=== PATIENT | female | born 1960 | race American Indian/Alaskan Native ===

== ENCOUNTER 2017-03-25 08:59 | Emergency (ER) | payer SELFPAY ==
--- NOTE | 2017-03-25 11:57 | Emergency Department Report ---
ED Fall HPI - General Chief Complaint: Fall Stated Complaint: FALL Time Seen by Provider: 03/25/17 11:30 Source: patient Mode of arrival: Ambulatory - History of Present Illness Initial Comments: 56-year-old -[place] female comes in status post slip and fell in the bathroom at [employer] last night approximately 11 PM. Patient states that she hit her left knee on the floor and hit the top of her head on the bathroom door. Patient uses is she feels like she pulled something in her middle of her back. She denies any swelling deformity. She is able to ambulate without difficulties. She denies any nausea no vomiting the last of consciousness no chest pain or change in vision. -: During the night Fall From: standing Fall Witnessed: no Place Fall Occurred: other ([place]) Loss of Consciousness: none Prolonged Down Time?: no Symptoms Prior to Fall: none Location: head, back, other (left knee) Location - Extremities: Left: Knee Severity scale (0 -10): 5 Quality: dull Context: tripped/slipped - Related Data Previous Rx's Medication Instructions Recorded Last Taken Type methOCARBAMOL [Robaxin] 500 mg PO BID #30 tab 01/27/14 Unknown Rx Acetaminophen/Codeine [Tylenol #3] 1 tab PO QHS PRN #10 tab 09/02/15 Unknown Rx Clindamycin [Clindamycin CAP] 600 mg PO BID #28 capsule 09/02/15 Unknown Rx Ibuprofen [Motrin] 800 mg PO Q8HR PRN #45 tablet 09/02/15 Unknown Rx Ibuprofen [Motrin 800 MG tab] 800 mg PO Q8H PRN #20 tablet 09/04/15 Unknown Rx traMADol [Ultram 50 MG tab] 50 mg PO Q6HR PRN #20 tablet 11/02/15 Unknown Rx Naproxen [Naprosyn TAB] 500 mg PO BID #30 tablet 03/25/17 Unknown Rx Allergies Allergy/AdvReac Type Severity Reaction Status Date / Time clindamycin Allergy Dizziness Verified 03/25/17 10:06 ED Review of Systems ROS: Stated complaint: FALL Other details as noted in HPI Constitutional: denies: chills, fever Eyes: denies: eye pain, eye discharge, vision change ENT: denies: ear pain, throat pain Respiratory: denies: cough, shortness of breath, wheezing Cardiovascular: denies: chest pain, palpitations Endocrine: no symptoms reported Gastrointestinal: denies: abdominal pain, nausea, diarrhea Genitourinary: denies: urgency, dysuria, discharge Musculoskeletal: denies: back pain, joint swelling, arthralgia Skin: denies: rash, lesions Neurological: denies: headache, weakness, paresthesias Psychiatric: denies: anxiety, depression Hematological/Lymphatic: denies: easy bleeding, easy bruising ED Past Medical Hx - Past Medical History Hx Hypertension: Yes Hx Diabetes: No - Surgical History Hx Breast Surgery: Yes (BILATERAL Breast biopsy) Additional Surgical History: L ankle, partial hysterectomy - Social History Smoking Status: Never Smoker Substance Use Type: None - Medications Home Medications: Home Medications Medication Instructions Recorded Confirmed Last Taken Type methOCARBAMOL [Robaxin] 500 mg PO BID #30 tab 01/27/14 Unknown Rx Acetaminophen/Codeine [Tylenol #3] 1 tab PO QHS PRN #10 tab 09/02/15 Unknown Rx Clindamycin [Clindamycin CAP] 600 mg PO BID #28 capsule 09/02/15 Unknown Rx Ibuprofen [Motrin] 800 mg PO Q8HR PRN #45 tablet 09/02/15 Unknown Rx Ibuprofen [Motrin 800 MG tab] 800 mg PO Q8H PRN #20 tablet 09/04/15 Unknown Rx traMADol [Ultram 50 MG tab] 50 mg PO Q6HR PRN #20 tablet 11/02/15 Unknown Rx Naproxen [Naprosyn TAB] 500 mg PO BID #30 tablet 03/25/17 Unknown Rx ED Physical Exam - General Limitations: No Limitations General appearance: alert - Head Head exam: Present: atraumatic - Eye Eye exam: Present: normal appearance - ENT ENT exam: Present: mucous membranes moist - Cardiovascular Cardiovascular Exam: Present: regular rate, normal rhythm, normal heart sounds - Extremities Exam Extremities exam: Present: normal inspection, full ROM. Absent: tenderness, pedal edema, joint swelling - Expanded Lower Extremity Exam Left Knee exam: Present: normal inspection, full ROM. Absent: tenderness, swelling, ecchymosis, deformity, crepidus, dislocation, erythema Neuro vascular tendon exam: Present: no vascular compromise Gait: Positive: observed and normal - Back Exam Back exam: Present: normal inspection, paraspinal tenderness (lumbar ) - Neurological Exam Neurological exam: Present: alert, oriented X3 - Psychiatric Psychiatric exam: Present: normal affect, normal mood - Skin Skin exam: Present: warm, dry, intact ED Course Vital Signs 03/25/17 09:59 Temperature 98.4 F Pulse Rate 87 Respiratory 17 Rate Blood Pressure 168/97 O2 Sat by Pulse 100 Oximetry Critical care attestation.: If time is entered above; I have spent that time in minutes in the direct care of this critically ill patient, excluding procedure time. ED Disposition Clinical Impression: Fall Qualifiers: Encounter type: initial encounter Qualified Code(s): W19.XXXA - Unspecified fall, initial encounter Back pain Qualifiers: Back pain location: thoracic back pain Chronicity: acute Back pain laterality: bilateral Qualified Code(s): M54.6 - Pain in thoracic spine Disposition: DISCHARGED TO HOME OR SELFCARE Is pt being admited?: No Does the pt Need Aspirin: No Condition: Stable Instructions: Fall Prevention for Older Adults (ED), Fall Prevention (ED) Additional Instructions: Please take pain medication as prescribed. If pain persists or gets worse please follow up with her primary care provider. Prescriptions: Naproxen [Naprosyn TAB] 500 mg PO BID #30 tablet Referrals: PRIMARY CARE, [Primary Care Provider] - 3-5 Days Forms: Work/School Release Form(ED)
[2017-03-25] MEDS: MOTRIN PO ONE (12:03)
[2017-03-25 13:32] VITALS: BP 162/92
== END 2017-03-25 13:33 | disposition home or self-care (01) ==
LOC: ED 08:59
DX: M54.6 Pain in thoracic spine (principal); I10 Essential (primary) hypertension; Z88.8 Allergy status to other drugs, medicaments and biological substances; W18.2XXA Fall in (into) shower or empty bathtub, initial encounter; Y93.89 Activity, other specified; Y99.8 Other external cause status; Y92.511 Restaurant or cafe as the place of occurrence of the external cause
CPT/HCPCS: 99282